=== PATIENT | male | born 1995 | race Caucasian/White ===

== ENCOUNTER → 2023-11-12 15:00 | Outpatient (BNVA) | payer OTHER, SELFPAY | PROVIDERS: PCP Family Medicine; Visit Provider Family Medicine | DX: E10.65 Type 1 diabetes mellitus with hyperglycemia (principal) | CPT/HCPCS: 80053; 80061; 83036; 84443; 85025 ==

== ENCOUNTER → 2024-04-18 16:51 | Outpatient (BNVA) | payer OTHER, SELFPAY | PROVIDERS: PCP Family Medicine; Visit Provider Family Medicine | DX: E10.65 Type 1 diabetes mellitus with hyperglycemia (principal) | CPT/HCPCS: 80053; 80061; 83036; 85025 ==

== ENCOUNTER 2024-11-11 23:39 | Emergency (ER) | payer MEDICAID, SELFPAY ==
[2024-11-11 23:41] VITALS: BP 137/115; PULSE 97; RESP 16; TEMP 37.2; O2SAT 97; BMI 31.4
[2024-11-12 00:23] VITALS: BP 123/87; PULSE 101; RESP 16; O2SAT 97
[2024-11-12 01:10] LABS: Glucose Point of Care 154 mg/dL (70-110)
[2024-11-12 01:36] VITALS: BP 153/94; PULSE 89; O2SAT 97
--- NOTE | 2024-11-12 19:15 | W.ED.OVERDOS ---
HPI - Overdose General: Chief Complaint: Overdose Stated Complaint: took 40 units insulin Time Seen by Provider: 11/11/24 23:47 History of Present Illness: This patient is a 29-year-old male who presents to the emergency department stating that he accidentally took the wrong insulin. He took 40 units of his fast acting insulin instead of his long-acting insulin at 11 PM. He is asymptomatic now. His blood sugar upon arrival was 209. He did come in by EMS and they did start D10. Related Data Previous Rx's ?Medication ?Instructions ?Recorded insulin glargine 100 unit/mL (3 35 unit (0.35 mL) SUBCUT QAM #45 mL 04/18/24 mL) subcutaneous pen (Lantus Solostar U-100 Insulin) insulin lispro 100 unit/mL 20 unit (0.2 mL) SUBCUT TID #45 mL 04/18/24 subcutaneous pen, sensor (Humalog Tempo Pen (U-100) Insulin) blood sugar diagnostic (OneTouch #200 ea 06/16/24 Ultra Test strips) blood-glucose sensor (Dexcom G7 #3 ea 11/02/24 Sensor device) Allergies Allergy/AdvReac Type Severity Reaction Status Date / Time No Known Allergies Allergy Verified 11/01/24 07:37 Review of Systems General: Reports: 10 or more systems reviewed and unremarkable except in HPI and below PFSH ED PFSH: Social History Smoking and tobacco/nicotine status: never used tobacco/nicotine Quit status (tobacco/nicotine): has quit using Year quit tobacco: 2023; hx 15years 1-1.5ppd Physical Exam Const: COMMON NORMALS: no acute distress, patient oriented x3 and no limitations GENERAL APPEARANCE: cooperative and comfortable HENMT: COMMON NORMALS: normocephalic, atraumatic, Normal nasal mucous membranes and turbinates present, moist oral mucous membranes and oropharynx normal HEAD & SCALP: normal to inspection, normocephalic and atraumatic FACE & SINUS: normal facial exam NOSE: Normal nasal mucous membranes and turbinates present Eye: COMMON NORMALS: Equal, round and reactive pupils present, EOMs intact bilaterally and conjunctivae normal GENERAL EYE: appearance normal, both eyes and all related structures CONJUNCTIVA: Yes conjunctivae normal PUPIL: Yes Equal, round and reactive pupils present Neck/C-Spine: COMMON NORMALS: supple and no JVD Chest: COMMONS NORMALS: normal inspection of the chest Resp: COMMON NORMALS: normal respiratory effort and clear to auscultation bilaterally AUSCULTATION: clear to auscultation bilaterally Cardio: COMMON NORMALS: no JVD, regular rate, regular rhythm, No gallops present (Cardio), No murmurs present (Cardio) and No rub (Cardio) RATE: regular rate RHYTHM: regular rhythm GI: COMMON NORMALS: Normal to inspection, nondistended, normoactive bowel sounds present, Soft to palpation and non-tender AUSCULTATION: Yes normoactive bowel sounds PALPATION: Yes Soft to palpation : COMMON NORMALS: Yes no CVA tenderness BLADDER/KIDNEY EXAM: Yes no CVA tenderness Back/Pelvis: COMMON NORMALS: no CVA tenderness and thoracic and lumbar spine normal to inspection Extremity: COMMON NORMALS: normal to inspection Neuro: COMMON NORMALS: patient oriented x3 and CN's II-XII intact bilaterally Psych: COMMON NORMALS: mental status grossly normal, Normal thought process present and cooperative THOUGHT PROCESS: Normal thought process present Skin: COMMON NORMALS: no rashes or lesions noted, turgor normal and no jaundice GENERAL SKIN EXAM: no rashes or lesions noted and turgor normal Course Vital Signs: Vital signs: Vital Signs Temperature 99 F 11/11/24 23:41 Pulse Rate 89 11/12/24 01:36 Respiratory Rate 16 11/12/24 00:23 Blood Pressure 153/94 11/12/24 01:36 Pulse Oximetry 97 11/12/24 01:36 Oxygen Delivery Me thod Room Air 11/12/24 00:23 MDM - Overdose Medical Decision Making Patient was given a food tray and he was observed for a couple of hours. He was subsequently discharged. His blood sugar upon discharge was 154. Patient does have a blood glucose sensor. Recommend he keep track of that for couple more hours and if he has any concerns give us a call or return. Otherwise follow-up with primary care physician as needed. Lab Data Laboratory Results POC Glucose 154 mg/dL (70-110) H 11/12/24 01:06 No radiology studies performed this visit Discharge Plan Discharge Patient Disposition: Home Clinical Impression: Diabetes mellitus Qualifiers: Diabetes mellitus type: type 1 Diabetes mellitus complication status: with hyperglycemia Qualified Code(s): E10.65 - Type 1 diabetes mellitus with hyperglycemia Condition: Stable Prescriptions: No Action insulin glargine [Lantus Solostar U-100 Insulin] 100 unit/mL (3 mL) insulin pen 35 unit SUBCUT QAM Qty: 45 3RF Humalog Tempo Pen(U-100)Insuln 100 unit/mL insulin pen, sensor 20 unit SUBCUT TID Qty: 45 3RF (DME) OneTouch Ultra Test Strip See Rx Instructions .Route Qty: 200 3RF Rx Instructions: test blood sugar 6x/daily (DME) Dexcom G7 Sensor Device See Rx Instructions .Route Qty: 3 3RF Rx Instructions: change sensor every 10 days Discharge Orders: Discharge ED (Routine); Ordered 11/12/24 Ordered By: Brayan Mendes Print Language: Syriac Coding Level of Care Code ED Payroll Administrative Assistant for Ata Reddy
== END 2024-11-12 01:38 | disposition home or self-care (01) ==
PROVIDERS: Emergency Provider Emergency Medicine
DX: E10.65 Type 1 diabetes mellitus with hyperglycemia (principal)
CPT/HCPCS: 36416; 82962; 99283

== ENCOUNTER → 2024-11-14 08:18 | Outpatient (BNVA) | payer MEDICAID, SELFPAY | PROVIDERS: Family Provider Nurse Practitioner Family; PCP Nurse Practitioner Family; Visit Provider Nurse Practitioner Family | DX: E10.9 Type 1 diabetes mellitus without complications (principal); E78.5 Hyperlipidemia, unspecified | CPT/HCPCS: 80053; 80061; 82306; 82607; 83036; 84439; 84443 ==

== ENCOUNTER → 2025-05-05 09:41 | Outpatient (BNVA) | payer BC, MEDICAID, SELFPAY | PROVIDERS: PCP Nurse Practitioner Family; Visit Provider Internal Medicine | DX: E10.9 Type 1 diabetes mellitus without complications (principal); R68.82 Decreased libido; R53.83 Other fatigue | CPT/HCPCS: 80053; 80061; 82043; 82306; 83036; 84403 ==